=== PATIENT | female | born 1945 | race Caucasian/White ===

== ENCOUNTER → 2023-05-26 10:19 | Outpatient (REF) | payer OTHER, SELFPAY | LOC: RAD 10:19 | PROVIDERS: ATTENDING PHYSICIAN Internal Medicine | DX: E04.1 Nontoxic single thyroid nodule (principal) | CPT/HCPCS: 76536 ==

== ENCOUNTER 2023-12-27 17:46 | Emergency (ER) | payer OTHER, SELFPAY ==
[2023-12-27 17:48] VITALS: BP 193/109
[2023-12-27] MEDS: TYLENOL 650 MG PO (19:06)
[2023-12-27 19:08] VITALS: BMI 33.5
[2023-12-27 19:10] VITALS: BP 163/106
--- NOTE | 2023-12-27 19:41 | ED.GENMED ---
History of Present Illness
<Yasmin Rouse PA-C - Last Filed: 12/27/23 21:12>
General
Chief Complaint: Extremity Pain (non-traumatic)
Source: patient
Exam Limitations: none
Time Seen by Provider: 12/27/23 18:13
Nursing documentation reviewed up to this point in time: agreed with
History of Present Illness
History of Present Illness:
Patient is a 78-year-old female with history hypertension, breast/fallopian tube cancer presenting to the emergency department for evaluation of left leg pain. Patient states that she did sustain a mechanical fall approximate 2 weeks ago where she
landed on her left side. Initially�patient states she did not have pain in her left leg. However, approximately 1 week ago started feel pain in her left lateral calf which began to radiate up into her left buttock. Patient describes pain as a
throbbing and constant. Today patient states pain got worse prompting her emergency department visit. Patient has been able to weight-bear. Patient denies numbness/tingling lower legs. Patient denies any back pain.
Patient states pain is much different than her sciatic pain in the past. Patient is concerned for possible blood clot.
Past History
<Yasmin Rouse PA-C - Last Filed: 12/27/23 21:12>
Past History
ED Past Medical History: Cancer, HTN and Hypothyroidism
ED Past Surgical History: Appendectomy, Bowel resection, Cholecystectomy and Gynecological
Social History
Tobacco: Non-smoker
Alcohol: None
Drug: None
Personal:
Living: with family
Employment: Retired
Family History
Family History: Other (Noncontributory)
Review of Systems
<Yasmin Rouse PA-C - Last Filed: 12/27/23 21:12>
Review of Systems
Allergies reviewed?: Yes
All Other Systems: ROS reviewed and negative except as documented in HPI and ROS
Phy Exam
<Yasmin Rouse PA-C - Last Filed: 12/27/23 21:12>
Physical Exam
Physical Exam:
Vitals: Hypertensive. Otherwise vital signs stable. Afebrile
General: Patient is well appearing, no acute distress
Skin: Warm and dry, no rashes or lesions
Head: Normocephalic, atraumatic
Throat: Protecting airway
Neck: Normal ROM, no cervical spine tenderness
Cardiac: Regular rate
Pulm: No apparent respiratory distress
Abdomen: Nondistended
Back: No midline spinal tenderness. No CVA tenderness.
Extremities: Mild tenderness to left lateral calf and left lateral knee. No evidence of traumatic injury to left lower extremity. No notable edema, ecchymoses, or erythema of left lower extremity. No bony tenderness of left lower extremity.
Patient has excellent range of motion left knee without pain. No joint line tenderness of left knee. Pelvis stable. No tenderness of left hip with full internal/external rotation. No tenderness of left ankle. Left lower extremity neurovascular
intact with palpable DP and PT pulses.
Neuro: Grossly intact
Psychiatric: Normal affect.
Course
<Yasmin Rouse PA-C - Last Filed: 12/27/23 21:12>
Orders/Labs/Results
Orders:
Orders
12/27/23 17:51
US Periph Venous LOWER Ext LT Urgent
Comment: pain to left calf, knee, thigh
Reason For Exam: pain
12/27/23 18:29
Acetaminophen [Tylenol] 650 mg PO NOW STA
Knee, Left 4 or More Views [CR Knee - Left 4 Or More View*] Urgent
Comment:
Reason For Exam: fall, left knee pain
Vital Signs
Initial and Last Documented VS:
Initial Vital Signs
Temp Pulse Resp BP Pulse Ox
97.7 F 74 16 193/109 97
12/27/23 17:48 12/27/23 17:48 12/27/23 17:48 12/27/23 17:48 12/27/23 17:48
Last Documented Vital Signs
Temp Pulse Resp BP Pulse Ox
97.7 F 72 16 139/106 98
12/27/23 17:48 12/27/23 21:14 12/27/23 21:14 12/27/23 21:14 12/27/23 21:14
<Qamar Carrero DO - Last Filed: 12/27/23 21:23>
Orders/Labs/Results
Orders:
Orders
12/27/23 17:51
US Periph Venous LOWER Ext LT Urgent
Comment: pain to left calf, knee, thigh
Reason For Exam: pain
12/27/23 18:29
Acetaminophen [Tylenol] 650 mg PO NOW STA
Knee, Left 4 or More Views [CR Knee - Left 4 Or More View*] Urgent
Comment:
Reason For Exam: fall, left knee pain
Vital Signs
Initial and Last Documented VS:
Initial Vital Signs
Temp Pulse Resp BP Pulse Ox
97.7 F 74 16 193/109 97
12/27/23 17:48 12/27/23 17:48 12/27/23 17:48 12/27/23 17:48 12/27/23 17:48
Last Documented Vital Signs
Temp Pulse Resp BP Pulse Ox
97.7 F 72 16 139/106 98
12/27/23 17:48 12/27/23 21:14 12/27/23 21:14 12/27/23 21:14 12/27/23 21:14
<Yasmin Rouse PA-C - Last Filed: 12/27/23 21:12>
MDM/Problems Addressed
Differential Diagnosis Includes:
Not limited to: DVT, meniscal injury, other ligamentous injury of knee, peripheral neuropathy, sciatica
MDM/Problems Addressed:
78-year-old female with history as documented presenting with left lower extremity pain and concern for DVT. Did have a fall approximately 2 weeks ago and 1 week prior to onset of pain. Patient hypertensive on arrival to emergency department,
otherwise vital signs stable. Exam as above. Patient is well-appearing, no apparent distress. Left lower extremity without any obvious traumatic injury/deformity. She does have tenderness along lateral aspect of mid calf up to lateral mid thigh.
No ecchymoses or edema. Patient has excellent range of motion in left knee and left hip without pain. Strength 5 out of 5 in left lower extremity. Both x-ray of left knee and ultrasound of left lower extremity obtained without any acute
abnormalities. Suspect likely neuropathic pain versus muscular/ligamentous strain. Stable for discharge with rest, ice, Tylenol for pain. Patient comfortable with plan.
Elevated blood pressure noted. Patient does check her blood pressure daily at home for which I looked at her log and appears to be typically in 140s/90s. Patient denies any headache, visual changes, chest pain, shortness of breath, severe back
pain. Patient aware and will follow up with primary care for further management of high blood pressure and possible medication adjustments.
Chronic conditions affecting care:
HTN
Acute Exacerbation and/or Progression of Chronic Illness:
Acutely hypertensive
<Yasmin Rouse PA-C - Last Filed: 12/27/23 21:12>
*Radiology
Radiology exam reviewed: preliminary read by ED provider (No acute fracture) and radiology read reviewed
*Pulse Oximetry
Patient hypoxic: no
*EKG
Interpreted by ED Provider?: NA
*Project Director Interpretation
Rate: Project Director- N/A
*Critical Care Note
Total Time (30-74mins, 75-104mins- exclusive of procedures): Not Applicable
ED Attending Note
<Yasmin Rouse PA-C - Last Filed: 12/27/23 21:12>
-
Portions of this chart may have been created with voice recognition software.� Occasional wrong word or��sound alike� substitutions may have occurred due to the inherent limitations of voice recognition software.
<Qamar Carrero, DO - Last Filed: 12/27/23 21:23>
ED Attending Note
Patient seen and examined by attending physician: Yes
I performed the substantive portion of visit, reviewed & personally made and approve the management plan that is documented in note by myself or ANU.: Yes
Discharge Plan
Departure
Patient Disposition: Home (Routine Discharge)
Date of Disposition: 12/27/23
Time of Disposition: 21:08
Patient with high blood pressure during this ER visit?: Yes
Condition: Good
Covid-19: Not Applicable
Discharge Problem:
Left leg pain
Instructions: BLOOD PRESSURE
Prescriptions:
No Action
lkrokmyq-tqr-LL-lycopen-lutein [Centrum Silver] 1 EACH tablet
1 ea PO DAILY
Cranberry Extract
2 tab PO DAILY
levothyroxine 50 MCG tablet
50 mcg PO MOTUWETHFR
acetaminophen [Tylenol Arthritis] 650 MG tablet extended release
1,300 mg PO Q8H PRN (Reason: PAIN)
calcium carbonate-vitamin D3 1 EACH tablet,chewable
2 ea PO DAILY
zinc amino acid chelate 50 MG tablet
50 mg PO DAILY
ybedktbswyx-[id number]-Tdkdbpmrg serr [Osteo Bi-Flex (5-Loxin)] 1 EACH tablet
2 ea PO DAILY
cyanocobalamin (vitamin B-12) 5,000 MCG tablet,disintegrating
5,000 mcg PO DAILY
cholecalciferol (vitamin D3) 125 MCG tablet,disintegrating
5,000 unit PO DAILY
Losartan Potassium
50 mg PO DAILY
mupirocin 1 APPLIC ointment
1 applic topical BID Qty: 1 0RF
Patient Comments:
took last night 02/02/20 at 2300
oxycodone 5 MG tablet
5 mg PO Q6HPRN PRN (Reason: moderate-severe pain) Qty: 30 0RF
Rx Instructions:
1/2 tab moderate pain or 1 tab if pain severe
Dx total joint replacement
ongoing therapy
meloxicam 15 MG tablet
15 mg PO DAILY Qty: 30 0RF
Rx Instructions:
take with food
space out 2 hours from aspirin
aspirin 325 MG tablet,delayed release (DR/EC)
325 mg PO DAILY Qty: 30 0RF
Rx Instructions:
1 daily for 30 days to prevent blood clots
Referrals:
Arlene Sood MD [Family Provider] -
Activity Restrictions/Additional Instructions:
RETURN TO THE EMERGENCY DEPARTMENT WITH ANY INTRACTABLE PAIN, NUMBNESS/TINGLING IN LEFT LEG, SEVERE BACK PAIN, WORSENING IN CURRENT SYMPTOMS, OR ANY OTHER CONCERNS
-You can take Tylenol as needed for discomfort.
-Continue to monitor your blood pressure at home. You should follow with your primary care for further evaluation/management. Please return to the emergency department any concerns.
Interventions
Interventions:
*Risk Screen - Suicide Last Done: 12/27/23 17:48
*General Assessment Last Done: 12/27/23 19:08
*Neglect/Abuse Screening Last Done: 12/27/23 17:48
ED- Fall Risk Assessment Last Done: 12/27/23 21:14
*ED COVID-19 Vaccine History Last Done: 12/27/23 19:08
*Nursing Disposition Last Done: 12/27/23 21:14
ED-Skin Assessment Last Done: 12/27/23 19:12
ED-Peripheral Vascular Assessment Last Done: 12/27/23 19:12
ED-Musculoskeletal Assessment Last Done: 12/27/23 19:12
Discharge Date and Time
Discharge Date/Time: 12/27/23 21:16
Print Language: SOMALI
[2023-12-27 21:14] VITALS: BP 139/106
== END 2023-12-27 21:16 | disposition home or self-care (01) ==
LOC: EMR 17:46
PROVIDERS: EMERGENCY PHYSICIAN Emergency Medicine; FAMILY PHYSICIAN Internal Medicine
DX: M79.605 Pain in left leg (principal); I10 Essential (primary) hypertension; E03.9 Hypothyroidism, unspecified; Z85.3 Personal history of malignant neoplasm of breast; Z90.49 Acquired absence of other specified parts of digestive tract
CPT/HCPCS: 99284; 73564; 93971

== ENCOUNTER → 2024-01-26 11:21 | Outpatient (REF) | payer OTHER, SELFPAY | LOC: RAD 11:21 | PROVIDERS: ATTENDING PHYSICIAN Internal Medicine | DX: M54.16 Radiculopathy, lumbar region (principal) | CPT/HCPCS: 72100 ==

== ENCOUNTER → 2024-01-31 06:53 | Outpatient (REF) | payer OTHER, SELFPAY | LOC: MRI 06:53 | PROVIDERS: ATTENDING PHYSICIAN Internal Medicine | DX: M54.16 Radiculopathy, lumbar region (principal) | CPT/HCPCS: 72148 ==

== ENCOUNTER → 2024-02-05 15:00 | Outpatient (REF) | payer OTHER, SELFPAY | LOC: PAVMRI 15:00 | PROVIDERS: ATTENDING PHYSICIAN Specialist; FAMILY PHYSICIAN Internal Medicine | DX: M25.512 Pain in left shoulder (principal) | CPT/HCPCS: 73221 ==

== ENCOUNTER 2024-06-13 06:29 | Day surgery (SDC) | payer OTHER, SELFPAY | END 2024-06-13 15:03 | disposition home or self-care (01) | LOC: GI 06:29 | PROVIDERS: ATTENDING PHYSICIAN Internal Medicine Gastroenterology; FAMILY PHYSICIAN Internal Medicine | DX: Z12.11 Encounter for screening for malignant neoplasm of colon (principal); D12.0 Benign neoplasm of cecum; K57.30 Diverticulosis of large intestine without perforation or abscess without bleeding; K62.1 Rectal polyp; K64.8 Other hemorrhoids; Z86.0101 Personal history of adenomatous and serrated colon polyps; Z80.0 Family history of malignant neoplasm of digestive organs | CPT/HCPCS: 45385; 88305 ==